=== PATIENT | female | born 1960 | race African-American/Black ===

== ENCOUNTER 2017-07-25 16:04 | Emergency (ER) | payer MEDICAID ==
[~2017-07-25] VITALS: Ht 162.6 cm; Wt 68.0 kg
[2017-07-25 17:28] VITALS: BP 110/67
[2017-07-25] MEDS ORDERED: cefTRIAXone SOD 1,000 MG VL IM ONE (17:45)
[2017-07-25] MEDS ORDERED: PHENAZOPYRIDINE HCL 100 MG TAB PO ONE (17:45)
[2017-07-25 18:22] LABS: Urine Bilirubin Negative (Negative); Urine Blood 3+ /uL (Negative); Urine Color Yellow (Yellow); Urine Glucose Normal (Normal); Urine Ketone Negative (Negative); Urine Mucus FEW (None Seen); Urine Nitrite POSITIVE (Negative); Urine RBC 14 /hpf (0 - 4); Urine Squamous Epithelial Cell FEW /hpf (<5); Urine Urobilinogen Normal (Negative); Urine WBC Clumps PRESENT /hpf (None Seen)
== END 2017-07-25 17:54 | disposition home or self-care (01) ==
LOC: ER 16:10
DX: N39.0 Urinary tract infection, site not specified (principal); J45.909 Unspecified asthma, uncomplicated; E07.9 Disorder of thyroid, unspecified; Z88.6 Allergy status to analgesic agent; G89.29 Other chronic pain; M54.5 Low back pain
CPT/HCPCS: 81001; 81002; 96372; 99283; J0696